=== PATIENT | female | born 1950 | race Caucasian/White ===

== ENCOUNTER 2019-12-04 08:40 | Emergency (ER) | payer OTHER ==
--- NOTE | 2019-12-04 09:39 | EDPHYS ---
Physician Documentation [facility] Name: Mary Asher Age: 69 yrs Sex: Female : 1950 Arrival Date: 12/04/2019 Time: 08:44 Bed 20 Private MD: Gene Whitaker ED Physician Nishant Evans HPI: 12/03 09:36 This 69 yrs old Female presents to ER via Ambulatory with complaints of Bee pm1 Sting. 09:36 The patient presents with swelling, wound. pm1 09:36 The complaints affect the right first toe. Context: The problem was sustained outdoors, pm1 resulted from yellow jacket sting, the patient can fully bear weight, the patient is able to ambulate. 09:36 Onset: The symptoms/episode began/occurred 2 day(s) ago. Modifying factors: The pm1 symptoms are alleviated by nothing, the symptoms are aggravated by nothing. Associated signs and symptoms: Pertinent negatives: fever. Severity of symptoms: in the emergency department the symptoms are actually worse. The patient has not experienced similar symptoms in the past. Patient believes that she might have scratched her foot at night because it is itchy and caused the wound on the top of her right great toe. She was stung on the medial aspect of her right great toe. Historical: - Allergies: 08:50 NSAIDS; ss 08:50 Demerol; ss 08:50 Percodan; ss - PMHx: 08:50 Hypertension; Hypothyroidism; Diabetes - NIDDM; ss - Immunization history:: Adult Immunizations unknown. - Social history:: Smoking status: Patient denies any tobacco usage or history of. ROS: 09:36 MS/extremity: Positive for rash, swelling, of the right first toe, Negative for pm1 decreased range of motion, deformity. 09:36 Constitutional: Negative for fever, chills, and weight loss, Cardiovascular: Negative for chest pain, palpitations, and edema, Respiratory: Negative for shortness of breath, cough, wheezing, and pleuritic chest pain, Abdomen/GI: Negative for abdominal pain, nausea, vomiting, diarrhea, and constipation, Back: Negative for injury and pain. 09:36 Neuro: Negative for headache, weakness, numbness, tingling, and seizure. 09:36 Skin: Positive for ulceration, of the right first toe. Exam: 09:36 Constitutional: This is a well developed, well nourished patient who is awake, alert, pm1 and in no acute distress. Head/Face: Normocephalic, atraumatic. Chest/axilla: Normal chest wall appearance and motion. Nontender with no deformity. No lesions are appreciated. Cardiovascular: Regular rate and rhythm with a normal S1 and S2. No gallops, murmurs, or rubs. Normal PMI, no JVD. No pulse deficits. Respiratory: Lungs have equal breath sounds bilaterally, clear to auscultation and percussion. No rales, rhonchi or wheezes noted. No increased work of breathing, no retractions or nasal flaring. Back: No spinal tenderness. No costovertebral tenderness. Full range of motion. 09:36 Skin: Appearance: normal except for affected area, abscess, not appreciated, cellulitis, is not appreciated, lesion(s), located on the right first toe, abrasion to dorsal aspect of right great toe. Mild swelling to right great toe. 09:36 Neuro: Exam negative for acute changes, Orientation: is normal, Mentation: is normal, Motor: is normal, moves all fours, Sensation: is normal, no obvious gross deficits. Vital Signs: 08:48 BP 161 / 72; Pulse 62; Resp 16; Temp 97.0(TE); Pulse Ox 97% on R/A; Weight 79.83 kg; ss Height 5 ft. 4 in. (162.56 cm); Pain 3/10; 09:25 BP 155 / 69; Pulse 87; Resp 18; Temp 98.2; Pulse Ox 95% on R/A; kj1 08:48 Body Mass Index 30.21 (79.83 kg, 162.56 cm) ss MDM: 09:30 Patient medically screened. pm1 09:36 Data reviewed: vital signs. Data interpreted: Pulse oximetry: on room air is 95 %. pm1 Interpretation: normal. 09:36 Counseling: I had a detailed discussion with the patient and/or guardian regarding: the pm1 historical points, exam findings, and any diagnostic results supporting the discharge/admit diagnosis, the need for outpatient follow up, to return to the emergency department if symptoms worsen or persist or if there are any questions or concerns that arise at home. 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 Exp: 08/17/2021. Lot #: [id number]. } Route: IM; Site: right gluteus; 09:52 Follow up: Response: Medication administered at discharge. Disposition: 19:29 Co-signature as Attending Physician, Nishant Evans MD. [email or web address] Disposition: 12/04/19 09:38 Discharged to Home. Impression: Insect bite (nonvenomous), right foot. - Condition is Stable. - Discharge Instructions: Insect Bite. - Prescriptions for Bactroban 2 % Topical Ointment - Apply to affected area 1 application by TOPICAL route every 12 hours; 30 gram. Bactrim DS 800- 160 mg Oral Tablet - take 1 tablet by ORAL route every 12 hours for 10 days; 20 tablet. - Medication Reconciliation Form, Thank You Letter, Antibiotic Education, Prescription Opioid Use form. - Follow up: Emergency Department; When: As needed; Reason: Worsening of condition. Follow up: Private Physician; When: 2 - 3 days; Reason: Recheck today's complaints, Continuance of care, Re-evaluation by your physician. - Problem is new. - Symptoms have improved. Signatures: Linda Giron RN RN Julio Cesar Harris NP [employer] pm1 Asael Irizarry RN RN bp Holmes, Maurice, MD MD [facility] Corrections: (The following items were deleted from the chart) 09:54 09:38 12/04/2019 09:38 Discharged to Home. Impression: Insect bite (nonvenomous), right bp foot. Condition is Stable. Forms are Medication Reconciliation Form, Thank You Letter, Antibiotic Education, Prescription Opioid Use. Follow up: Emergency Department; When: As needed; Reason: Worsening of condition. Follow up: Private Physician; When: 2 - 3 days; Reason: Recheck today's complaints, Continuance of care, Re-evaluation by your physician. Problem is new. Symptoms have improved. pm1
--- NOTE | 2019-12-04 09:39 | ER ---
Nurse's Notes [facility] Name: Mary Asher Age: 69 yrs Sex: Female : 1950 Arrival Date: 12/04/2019 Time: 08:44 Bed 20 Private MD: Gene Whitaker Diagnosis: Insect bite (nonvenomous), right foot Presentation: 12/03 08:48 Chief complaint: Patient states: redness, swelling and now a small wound to R foot ss after a yellow jacket sting two days ago. Coronavirus screen: Proceed with normal triage. Patient denies a cough. Patient denies shortness of breath or difficulty breathing. Patient denies measured and/or subjective temperature greater than 100.4F prior to today's visit. Patient denies travel on a cruise ship or to a country the [facility] currently lists as an affected area. Patient denies contact with known and/or suspected case of COVID-19. Ebola Screen: Patient denies exposure to infectious person. Patient denies travel to an Ebola-affected area in the 21 days before illness onset. Onset: The symptoms/episode began/occurred 2 day(s) ago. Anaphylaxis evaluation, no signs or symptoms of anaphylaxis were noted. Initial Sepsis Screen: Does the patient meet any 2 criteria? No. Patient's initial sepsis screen is negative. Does the patient have a suspected source of infection? Yes: Skin breakdown/wound. Risk Assessment: Do you want to hurt yourself or someone else? Patient reports no desire to harm self or others. Onset of symptoms was December 02, 2019. 08:48 Method Of Arrival: Ambulatory ss 08:48 Acuity: MATTHIAS 3 ss Historical: - Allergies: 08:50 NSAIDS; ss 08:50 Demerol; ss 08:50 Percodan; ss - PMHx: 08:50 Hypertension; Hypothyroidism; Diabetes - NIDDM; ss - Immunization history:: Adult Immunizations unknown. - Social history:: Smoking status: Patient denies any tobacco usage or history of. Screenin:00 Abuse screen: Denies threats or abuse. Denies injuries from another. Nutritional ss screening: No deficits noted. Tuberculosis screening: Never had TB. Fall Risk None identified. Assessment: 09:00 General: Appears in no apparent distress. comfortable, Behavior is calm, cooperative. ss Pain: Complains of pain in right foot Pain currently is 3 out of 10 on a pain scale. Neuro: Level of Consciousness is awake, alert, obeys commands, Oriented to person, place, time, situation. Cardiovascular: Capillary refill < 3 seconds is brisk in bilateral fingers. Respiratory: Airway is patent Respiratory effort is even, unlabored, Respiratory pattern is regular, symmetrical. GI: Patient currently denies diarrhea, nausea, vomiting. : No signs and/or symptoms were reported regarding the genitourinary system. EENT: Nares are clear. Derm: Skin is intact, is healthy with good turgor, Skin is dry, Skin is pink, warm \T\ dry. normal. Derm: Wound noted Other: redness and oozing that began 2 days ago after yellow jacket sting. oozing is noted to be serous fluid. Musculoskeletal: Circulation, motion, and sensation intact. Range of motion: intact in all extremities, Swelling absent. 09:53 Reassessment: PT D/C HOME AMBULATORY, DX WITH INSECT BITE. Respiratory: Airway is bp patent Breath sounds are clear bilaterally. Vital Signs: 08:48 BP 161 / 72; Pulse 62; Resp 16; Temp 97.0(TE); Pulse Ox 97% on R/A; Weight 79.83 kg; Height 5 ft. 4 in. (162.56 cm); Pain 3/10; 09:25 BP 155 / 69; Pulse 87; Resp 18; Temp 98.2; Pulse Ox 95% on R/A; kj1 08:48 Body Mass Index 30.21 (79.83 kg, 162.56 cm) ED Course: 08:44 Patient arrived in ED. mr 08:45 Gene Whitaker DO is Private Physician. mr 08:50 Triage completed. ss 08:50 Arm band placed on right wrist. ss 09:00 Patient has correct armband on for positive identification. Bed in low position. Call light in reach. 09:22 Asael Irizarry, SULTANA is Primary Nurse. bp 09:23 Julio Cesar Harris NP is PHCP. pm1 09:23 Nishant Evans MD is Attending Physician. pm1 09:53 No provider procedures requiring assistance completed. Patient did not have IV access bp during this emergency room visit. 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 Exp: bp 08/17/2021. Lot #: [id number]. } Route: IM; Site: right gluteus; 09:52 Follow up: Response: Medication administered at discharge. bp Outcome: 09:38 Discharge ordered by . pm1 09:53 Discharged to home ambulatory. bp 09:53 Condition: stable 09:53 Discharge instructions given to patient, Instructed on discharge instructions, follow up and referral plans. medication usage, wound care, Demonstrated understanding of instructions, follow-up care, medications, wound care, Prescriptions given X 2. 09:54 Patient left the ED. bp Signatures: Morena Keith Shelby, RN RN ss Julio Cesar Harris, [employer] pm1 Asael Irizarry RN RN Fartun Ann kj1
[2019-12-04] MEDS ORDERED: TETANUS & DIPHTHERIA TOX,ADULT 0.5 ML VIAL ONE (09:55)
[2019-12-04 10:02] VITALS: BP 155/69; TEMP 98.2; O2SAT 95
--- OUTSIDE RECORDS SUMMARY | 2019-12-04 10:03 | XMS REPORT | Continuity of Care Document ---
:1950 Author Organization [facility] t Address [address] [place] [address] [address] [place] [address] Care Team Providers Name Role Phone Unavailable Unavailable Unavailable Problems Condition Condition Condition Status Onset Resolution Last Treating Co mments Source Name Details Category Date Date Treatment Clinician Date Diabetes Diabetes Problem Active 2020-0 [facility] mellitus Mellitus 5-02 Family 00:00: Practic 00 e Hypothyroi Hypothyroi Problem Active 2020-0 [facility] dism dism 4-23 Family 00:00: Practic 00 e Diabetic Diabetic Problem Active 2020-0 [facility] polyneurop Polyneurop 4-23 Fa dhaval ath ath 00:00: Practic 00 e Insomnia Insomnia Problem Active 2020-0 [facility] ge 4-23 Family 00:00: Practic 00 e Blepharosp Blepharosp Problem Active 2020-0 [facility] asm asm 4-23 Family 00:00: Practic 00 e Essential Essential Problem Active 2020-0 [facility] trista hypertensi Hypertensi 4-23 Fa dhaval on on 00:00: Practic 00 e Gastroesop Gastroesop Problem Active 2020-0 [facility] hageal hageal 4-23 Family reflux Reflux 00:00: Practic disease Disease 00 e Allergies, Adverse Reactions, Alerts Allergy Allergy Status Severity Reaction(s) Onset Inactive Treating Comm ents Source Name Type Date Date Clinician Aspirin Allergy Active [facility] Practic e e Demerol Allergy Active [facility] Practic e e PERCODAN Allergy Active [facility] sub[facility]anc Practic e e Medications Ordered Filled Start Stop Current Ordering Indication Dosage Frequency Signature Comments Components Source Medication Medication Date Date Medication? Clinician (SIG) Name Name Viviana Michelle No 1 Q1D Viviana [facility] Thyroid 90 Thyroid 90 Thyroid 90 Family mg tablet mg tablet mg tablet Practic Take 1 Take 1 Take 1 e tablet tablet tablet every day every day every day by oral by oral by oral route. route. route. bisoprolol bisoprolol No 1 Q1D bisoprolol [facility] 2.5 2.5 2.5 Family mg-hydrochl mg-hydrochl mg-hydroch Practic orothiazide orothiazide lorothiazi e 6.25 mg 6.25 mg de 6.25 mg tablet Take tablet Take tablet 1 tablet 1 tablet Take 1 every day every day tablet by oral by oral every day route. route. by oral route. lansoprazol lansoprazol No 1capsul Q1D lansoprazo [place] e 30 mg e 30 mg e(s) le 30 mg Famil y capsule,del capsule,del capsule,de Practic ayed ayed layed e release release release Take 1 Take 1 Take 1 capsule capsule capsule every day every day every day by oral by oral by oral route. route. route. metformin metformin No 1 BID metformin [facility] 500 mg 500 mg 500 mg Family tablet Take tablet Take tablet Practic 1 tablet 1 tablet Take 1 e twice a day twice a day tablet by oral by oral twice a route. route. day by oral route. zolpidem 10 zolpidem 10 No 1 Q1D zolpidem [place] mg tablet mg tablet 10 mg Fami ly Take 1 Take 1 tablet Practic tablet tablet Take 1 e every day every day tablet by oral by oral every day route. route. by oral route. Vital Signs Vital Name Observation Time Observation Value Comments Source Height 2019-10-30 00:00:00 65 [in_i] [facility] BMI (Body Mass 2019-10-30 00:00:00 29.3 kg/m2 [facility] Family Index) Practice Body Weight 2019-10-30 00:00:00 176 [lb_av] [facility] Procedures This patient has no known procedures. Encounters Start End Encounter Admission Attending Care Care Encounter Source Date/Time Date/Time Type Type Clinicians Facility Department ID 2019-10-30 2019-10-30 Yanira [facility] [place] - [id number] [facility] 00:00:00 00:00:00 [facility] kristi nj REGIONAL TRANSFER LIAISON: Medical - Practi c [email or web address] [facility], [place] [address], [place] [address] , Ph. Results This patient has no known results.
--- OUTSIDE RECORDS SUMMARY | 2019-12-04 10:03 | XMS REPORT | Encounter Summary ---
:1950 Author Care Team Providers Name Role Phone Dr. Apolonia Barksdale Primary Care Provider Unavailable Gene Whitaker DO Primary Care Provider [phone] Reason for Visit Gastroesophageal reflux disease; Hypothy roidism; Diabetes mellitus; Essential hypertension; Telemedicine Visit Instructions 1. Gastroesophageal reflux disea se 2. Essential hypertension bisoprolol 2.5 mg-hydrochl orothiazide 6.25 mg tablet 3. Diabetes mellitus metformin 500 mg tablet 4. Hypothyroidism [place] Thyroid 90 mg table t Discussion Note Completed a telephone visit with vijay mendiola. Patient report he has enough meds currently and does not need any refills. Patient encouraged to wash hands frequently for 20 seconds, practice social distanci ng by stay home and maintaining physical space in public. Patient encouraged to s [facility] if he starts having continues cough, fever and sob. Patient verbalized understanding. Patient educational handouts: No information available. Plan of Care Reminders Provider Appointments None recorded. Lab None recorded. Referral None recorded. Procedures None recorded. Surgeries None recorded. Imaging None recorded. Medications Name Start Date [place] Thyroid 90 mg tablet Take 1 tablet every day by oral route. bisoprolol 2.5 mg-hydrochlorothiazide 6.25 mg tablet Take 1 tablet every day by oral route. lansoprazole 30 mg capsule,delayed release Take 1 capsule every day by oral route. metformin 500 mg tablet Take 1 tablet twice a day by oral route. zolpidem 10 mg tablet Take 1 tablet every day by oral route. Medications Administered None recorded. Vitals Height Weight BMI 5 ft 5 in 176 lbs 29.3 kg/m2 Results Lab Results None recorded. Allergies Code Code System Name Reaction Severity Status Onset 1191 RxNorm Aspirin Active 678307 RxNorm Demerol Active Percodan Active Problems Name Status Onset Date Source Hypothyroidism Active 10/25/2019 Diabetic Polyneuropathy Active 10/25/2019 Insomnia Active 10/25/2019 Blepharospasm Active 10/25/2019 Essential Hypertension Active 10/25/2019 Gastroesophageal Reflux Disease Active 10/25/2019 Diabetes Mellitus Active 11/03/2019 Procedures None recorded. Vaccine List None recorded. Social History None recorded. Past Encounters 10/30/2019 Gastroesophageal Reflux Disease; Essenti al Hypertension; Diabetes Mellitus; Hypothyroidism Yanira Levin CHARTERED FINANCIAL ANALYST: [address], [address], [place] [address], Ph. History of Present Illness Note: I confirmed that I received verbal consent from the patient for a telemedicine visit. Review of Systems Comprehensive General Adult ROS Reported By: Patient Constitutional: Constitutional: no fever, no night sweats, no significant weight gain, no significant weight loss, no exercise intolerance Eyes: Eyes: no dry eyes, no vision change, no irritation ENMT: Ears: no difficulty hearing, no ear pain. Nose: no frequent nosebleeds, no nose problems , no sinus problems. Mouth/Throat: no sore throat, no bleeding gums, no snoring, no dry mouth, no mouth ulcers, no oral abnorm alities, no teeth problems Cardiovascular: Cardiovascular: no chest maryellen n, no arm pain on exertion, no shortness of breath when wal heather, no shortness of breath when lying down, no palpitations, no known heart murmur, no lightheadedness Respiratory: Respiratory: no cough, no wh eezing, no shortness of breath, no coughing up blood, no sleep apnea Gastrointestinal: Gastrointestinal: no abdomin al pain, no nausea, no vomiting, no constipation, normal appe tite, no diarrhea, not vomiting blood, no dyspepsia, no GERD Genitourinary: Genitourinary: no incontinen ce, no difficulty urinating, no hematuria, no increased freq uency Musculoskeletal: Musculoskeletal: no muscle a ches, no muscle weakness, no arthralgias/joint pain, no b ack pain, no swelling in the extremities Integumentary: Skin: no abnormal mole, no j aundice, no rashes, no laceration Neurologic: Neurologic: no loss of consc iousness, no weakness, no numbness, no seizures, no di zziness, no migraines, no headaches, no tremor Psychiatric: Psych: no depression, no sle ep disturbances, feeling safe in a relationship, no alcohol abu se, no anxiety, no hallucinations, no suicidal thoughts Endocrine: Endocrine: no fatigue Hematologic/Lymphatic: Hematologic/Lymphatic no swo llen glands, no bruising, no excessive bleeding Allergic/Immunologic: Allergy/Immunologic: no runn y nose, no sinus pressure, no itching, no hives, no freque nt sneezing Physical Exam Telemedicine/Virtual Visit Reported By: Patient Constitutional: Level of Distress: NAD
== END 2019-12-04 09:54 | disposition home or self-care (01) ==
LOC: ER 08:40
DX: S90.861A Insect bite (nonvenomous), right foot, initial encounter (principal); Z88.6 Allergy status to analgesic agent
CPT/HCPCS: 90471; 90714; 99283

== ENCOUNTER 2023-12-19 13:31 | Emergency (ER) | payer OTHER ==
[2023-12-19 14:42] LABS: Absolute Eosinophils 0.2 K/uL (0-0.5); Absolute Lymphocytes (CBC) 1.8 K/uL (0.7-4.9); Absolute Monocytes 0.4 K/uL (0.1-1.3); Absolute Neutrophil 4.8 K/uL (1.8-8.0); Basophils % 0.5 % (0-1.3); Eosinophils % 2.4 % (0-4.4); Lymphocytes % 25.4 % (15.3-44.8); MCH 31.9 pg (27.0-35.0); MCHC 33.4 g/dL (32.0-36.0); MCV 95.4 fL (80-100); MPV 7.9 fL (7.6-11.3); Monocytes % 5.5 % (3.3-12.3); Neutrophils % 66.2 % (41.7-73.7); Platelets 309 thou/uL (152-406); RBC Red Blood Cell Count 4.41 M/uL (3.86-4.86); Red Cell Distribution Width 12.9 % (12.1-15.2)
[2023-12-19 14:49] LABS: ALT/SGPT 25 U/L (13-56); Albumin 3.8 g/dL (3.4-5.0); Alkaline Phosphatase 64 U/L (45-117); Anion Gap 9.7 mEq/L (5.0-15.0); BUN Blood Urea Nitrogen 10 mg/dL (7-18); Bicarbonate 28 mEq/L (21-32); Bilirubin Total 0.3 mg/dL (0.2-1.0); Globulin 3.8 g/dL (2.3-3.5); Glomerular Filtration Rate 90 ml/min (=/>90); Glucose Level 129 mg/dL (74-106); Lipase 104 U/L (13-75); Potassium 3.7 mEq/L (3.5-5.1); Protein, Total 7.6 g/dL (6.4-8.2); Sodium Level 140 mEq/L (136-145)
[2023-12-19 14:53] LABS: AST/SGOT < 10 U/L (15-37)
[2023-12-19] MEDS ORDERED: MORPHINE 4 MG/ML SYR ONE ×2 (14:54→16:24)
[2023-12-19 15:09] LABS: Specific Gravity 1.021 (1.005-1.030); Sqamous Epithelial <5 /HPF (None Seen); Urine Bacteria None Seen /HPF (<20); Urine Bilirubin NEGATIVE (Negative); Urine Blood 3+ (OVER) (Negative); Urine Clarity Extremely Turbid (Clear); Urine Color Light-Yellow (Yellow); Urine Culture Reflex Order NOT NEEDED; Urine Glucose NEGATIVE (Negative); Urine Ketones NEGATIVE (Negative); Urine Microscopic Reflex YN ORDER UMIC; Urine Mucus Slight /HPF (None Seen); Urine Nitrite NEGATIVE (Negative); Urine Protein TRACE (Negative); Urine RBC >50 /HPF (None Seen); Urine Urobilinogen Normal (Normal); Urine Yeast (Budding) Occasional /HPF (None Seen); Urine pH 5.5 (5.0-7.0)
--- NOTE | 2023-12-19 16:55 | RAD REPORT ---
EXAM DESCRIPTION: CT - Stone Protocol - 12/19/2023 2:30 pm CLINICAL HISTORY: left flank pain COMPARISON: No comparisons TECHNIQUE: Thin cut axial CT imaging of the abdomen and pelvis was performed without IV contrast. Mu ltiplanar reformats were generated and reviewed. All CT scans are performed using dose optimization technique as appropriate and may include automated exposure control or mA/KV adjustment according to patient size. FINDINGS: No suspicious findings in the lung bases. The liver, spleen, adrenal glands, and pancreas show no suspicious findings. Gallbladder was surgical ly removed. Symmetric renal contour, without suspicious parenchymal findings within limits of noncontrast techniq ue. Mild left hydronephrosis. 6 mm calculus at the left ureteric junction. No dilated bowel loops or bowel wall thickening. No free air, free fluid or inflammatory stranding. N o hernia, mass or bulky lymphadenopathy. Colonic diverticulosis. The urinary bladder is without signi ficant finding. No suspicious bony findings. IMPRESSION: Mild left hydroureteronephrosis. 6 mm left pelviureteric junction obstructing calculus. .
[2023-12-19] MEDS ORDERED: TAMSULOSIN 0.4 MG SR CAP ONE (17:01)
--- NOTE | 2023-12-19 17:50 | ER ---
Nurse's Notes [facility] Name: Mary Asher Age: 73 yrs Sex: Female : 1950 Arrival Date: 12/19/2023 Time: 13:31 Bed 11 Private MD: Diagnosis: Calculus of ureter-left Presentation: 12/18 13:47 Chief complaint: Patient states: left flank pain that began around 1200 today. Pt also aa5 reports nausea. Coronavirus screen: At this time, the client does not indicate any symptoms associated with coronavirus-19. Ebola Screen: Patient denies travel to an Ebola-affected area in the 21 days before illness onset. Initial Sepsis Screen: Does the patient meet any 2 criteria? No. Patient's initial sepsis screen is negative. Does the patient have a suspected source of infection? No. Patient's initial sepsis screen is negative. Risk Assessment: Do you want to hurt yourself or someone else? Patient reports no desire to harm self or others. Onset of symptoms was December 19, 2023. 13:47 Method Of Arrival: Ambulatory aa5 13:47 Acuity: MATTHIAS 3 aa5 Historical: - Allergies: 13:47 Demerol; aa5 13:47 NSAIDS; aa5 13:47 Percodan; aa5 13:47 Aspirin; aa5 - PMHx: 13:47 Diabetes - NIDDM; Hypertension; Hypothyroidism; aa5 - Immunization history:: Adult Immunizations unknown. - Infectious Disease History:: Denies. - Social history:: Smoking status: Patient denies any tobacco usage or history of. Screenin:11 [facility] ED Fall Risk Assessment (Adult) History of falling in the last 3 months, as6 including since admission No falls in past 3 months (0 pts) Confusion or Disorientation No (0 pts) Intoxicated or Sedated No (0 pts) Impaired Gait No (0 pts) Mobility Assist Device Used No (0 pt) Altered Elimination No (0 pt). Abuse screen: Denies threats or abuse. Denies injuries from another. Nutritional screening: No deficits noted. Tuberculosis screening: No symptoms or risk factors identified. Assessment: 15:10 General: Appears in no apparent distress. Behavior is calm, cooperative. Pain: as6 Complains of pain in left flank. : Reports pain in left flank(s), Denies burning with urination, inability to void, urinary frequency, urgency. 16:28 Reassessment: Patient appears in no apparent distress at this time. Patient states as6 symptoms have not improved. 17:26 General: slight improvement in pain . as6 Vital Signs: 13:47 BP 155 / 82; Pulse 82; Resp 20 S; Temp 97.6(O); Pulse Ox 100% on R/A; Weight 73.03 kg aa5 (R); Height 5 ft. 3 in. (R); 16:28 BP 112 / 86; Pulse 80; Resp 16; Pulse Ox 97% ; as6 17:25 BP 153 / 87; Pulse 78; Resp 16; Pulse Ox 100% ; as6 17:58 BP 132 / 72; Pulse 65; Resp 16; Pulse Ox 99% ; as6 13:47 Body Mass Index 28.52 (73.03 kg, 160.02 cm) aa5 ED Course: 13:35 Patient arrived in ED. im 13:38 Bunny Evans PA is PHCP. cp 13:38 Jorge Carpenter MD is Attending Physician. cp 13:47 Triage completed. aa5 13:47 Arm band placed on. aa5 14:23 CBC with Diff Sent. bc6 14:23 CMP Sent. bc6 14:23 Lipase Sent. bc6 14:23 Urinalysis w/ reflexes Sent. bc6 14:23 Initial lab(s) drawn, by me, sent to lab. Inserted saline lock: 22 gauge in right bc6 wrist, using aseptic technique. Blood collected. 14:31 CT Stone Protocol In Process Unspecified. EDMS 14:44 Patient placed in an exam room, on a stretcher. ll1 14:52 Gene Rivera, RN is Primary Nurse. as6 15:11 Bed in low position. Call light in reach. Side rails up X 1. as6 17:49 Logan Wright MD is Referral Physician. cp 17:58 Provided Education on: rx teaching . as6 17:58 No provider procedures requiring assistance completed. IV discontinued, intact, as6 bleeding controlled, No redness/swelling at site. Pressure dressing applied. Administered Medications: 15:02 Drug: morphine IVP or IV 4 mg IVP once over 4 mins Route: IVP; Infused Over: 4 mins; as6 Site: right forearm; 17:00 Follow up: Response: No adverse reaction as6 16:28 Drug: morphine IVP or IV 4 mg IVP once over 4 mins Route: IVP; Infused Over: 4 mins; as6 Site: right forearm; 17:00 Follow up: Response: No adverse reaction as6 17:25 Drug: Flomax PO 0.4 mg PO once Route: PO; as6 17:58 Follow up: Response: No adverse reaction as6 Medication: 15:11 VIS not applicable for this client. as6 Outcome: 17:49 Discharge ordered by . lebron 17:58 Discharged to home ambulatory, with significant other, as6 17:58 Condition: stable 17:58 Discharge instructions given to patient, Instructed on discharge instructions, follow up and referral plans. medication usage, Demonstrated understanding of instructions, follow-up care, medications, Prescriptions given X 3, 17:59 Patient left the ED. as6 Signatures: Dispatcher [employer] EDMS Bharti Soto RN RN aa5 Bunyn Evans PA PA cp Lewis, Lynsay, RN RN ll1 Gene Rivera RN RN as6 Vashti Ramirez 6 Meli Mota
--- NOTE | 2023-12-19 17:50 | EDPHYS ---
Physician Documentation [facility] Name: Mary Asher Age: 73 yrs Sex: Female : 1950 Arrival Date: 12/19/2023 Time: 13:31 Bed 11 Private MD: ED Physician Jorge Carpenter HPI: 12/18 14:00 This 73 yrs old Female presents to ER via Ambulatory with complaints of Side pain. cp 14:00 The patient complains of pain in the left flank. cp 14:00 The pain radiates to the abdomen. Onset: The symptoms/episode began/occurred today, cp about 1200. Associated signs and symptoms: Pertinent positives: nausea, Pertinent negatives: diarrhea, fever, headache, hematuria, vomiting. Severity of pain: in the emergency department the pain is unchanged despite home interventions. Historical: - Allergies: 13:47 Demerol; aa5 13:47 NSAIDS; aa5 13:47 Percodan; aa5 13:47 Aspirin; aa5 - PMHx: 13:47 Diabetes - NIDDM; Hypertension; Hypothyroidism; aa5 - Immunization history:: Adult Immunizations unknown. - Infectious Disease History:: Denies. - Social history:: Smoking status: Patient denies any tobacco usage or history of. ROS: 14:05 Constitutional: Negative for body aches, chills, fever, poor PO intake, cp 14:05 Eyes: Negative for injury, pain, redness, and discharge, cp 14:05 ENT: Negative for drainage from ear(s), ear pain, sore throat, difficulty swallowing, difficulty handling secretions, 14:05 Cardiovascular: Negative for chest pain, palpitations, 14:05 Respiratory: Negative for cough, shortness of breath, wheezing, 14:05 Abdomen/GI: Positive for nausea, Negative for vomiting, diarrhea, constipation, 14:05 Back: Positive for flank pain, on the left, 14:05 : Negative for burning with urination, 14:05 Neuro: Negative for altered mental status, headache, weakness, 14:05 All other systems are negative, Exam: 14:10 Constitutional: The patient appears in no acute distress, alert, awake, non-toxic, well cp developed, well nourished, uncomfortable, 14:10 Head/Face: Normocephalic, atraumatic. cp 14:10 Eyes: Periorbital structures: appear normal, Conjunctiva: normal, no exudate, no injection, Sclera: no appreciated abnormality, Lids and lashes: appear normal, bilaterally, 14:10 ENT: External ear(s): are unremarkable, Nose: is normal, Mouth: Lips: moist, Oral mucosa: pink and intact, moist, Posterior pharynx: Airway: no evidence of obstruction, patent, 14:10 Chest/axilla: Inspection: normal, 14:10 Cardiovascular: Rate: normal, Rhythm: regular, 14:10 Respiratory: the patient does not display signs of respiratory distress, Respirations: normal, no use of accessory muscles, no retractions, labored breathing, is not present, Breath sounds: are clear throughout, no decreased breath sounds, no stridor, no wheezing, 14:10 Abdomen/GI: Inspection: abdomen appears normal, Bowel sounds: active, all quadrants, Palpation: soft, in all quadrants, moderate abdominal tenderness, in the posterior aspect of left lateral abdomen and anterior aspect of left lateral abdomen, rebound tenderness, is not appreciated, involuntary guarding, is not appreciated, 14:10 Back: pain, that is moderate, of the left mid back, ROM is normal, 14:10 Neuro: Orientation: to person, place \T\ time. Mentation: able to follow commands, Motor: moves all fours, strength is normal, Sensation: is normal, Vital Signs: 13:47 BP 155 / 82; Pulse 82; Resp 20 S; Temp 97.6(O); Pulse Ox 100% on R/A; Weight 73.03 kg aa5 (R); Height 5 ft. 3 in. (R); 16:28 BP 112 / 86; Pulse 80; Resp 16; Pulse Ox 97% ; as6 17:25 BP 153 / 87; Pulse 78; Resp 16; Pulse Ox 100% ; as6 17:58 BP 132 / 72; Pulse 65; Resp 16; Pulse Ox 99% ; as6 13:47 Body Mass Index 28.52 (73.03 kg, 160.02 cm) aa5 MDM: 13:45 Patient medically screened. 17:48 Data reviewed: vital signs, nurses notes, lab test result(s), radiologic studies, CT cp scan, and as a result, I will discharge patient. 17:48 I considered the following discharge prescriptions or medication management in the emergency department Medications were administered in the Emergency Department. See MAR. Care significantly affected by the following chronic conditions: Diabetes, Hypertension. Counseling: I had a detailed discussion with the patient and/or guardian regarding the historical points, exam findings, and any diagnostic results supporting the discharge/admit diagnosis, lab results, radiology results, the need for outpatient follow up, a urologist, to return to the emergency department if symptoms worsen or persist or if there are any questions or concerns that arise at home. Response to treatment: the patient's symptoms have markedly improved after treatment, and as a result, I will discharge patient. 12/18 13:58 Order name: CBC with Diff; Complete Time: 15:12 cp 12/18 13:58 Order name: CMP; Complete Time: 15:12 12/18 15:12 Interpretation: Normal except: GLUC 129; AST < 10; GLOB 3.8; A/G 1.0. cp 12/18 13:58 Order name: Lipase; Complete Time: 15:12 12/18 13:58 Order name: Urinalysis w/ reflexes; Complete Time: 15:12 12/18 15:14 Interpretation: Normal except: [facility] Extremely Turbid; UBLD 3+ (OVER); UPROT TRACE; cp UESTR 75; URBC >50; BYST Occasional. 12/18 13:58 Order name: CT Stone Protocol; Complete Time: 16:56 cp 12/18 13:58 Order name: IV Saline Lock; Complete Time: 14:23 cp 12/18 13:58 Order name: Labs collected and sent; Complete Time: 14:23 cp Administered Medications: 15:02 Drug: morphine IVP or IV 4 mg IVP once over 4 mins Route: IVP; Infused Over: 4 mins; as6 Site: right forearm; 17:00 Follow up: Response: No adverse reaction as6 16:28 Drug: morphine IVP or IV 4 mg IVP once over 4 mins Route: IVP; Infused Over: 4 mins; as6 Site: right forearm; 17:00 Follow up: Response: No adverse reaction as6 17:25 Drug: Flomax PO 0.4 mg PO once Route: PO; as6 17:58 Follow up: Response: No adverse reaction as6 Disposition: 12/19 16:26 Co-signature as Attending Physician, Jorge Carpenter MD I reviewed the patient's care rn provided by the Advanced Practice Provider and agree with the diagnosis and treatment plan. Disposition Summary: 12/19/23 17:49 Discharge Ordered Notes: Location: Home cp Problem: new cp Symptoms: have improved cp Condition: Stable cp Diagnosis - Calculus of ureter - left cp Followup: cp - With: Logan Wright MD - When: 2 - 3 days - Reason: Recheck today's complaints Discharge Instructions: - Discharge Summary Sheet cp - Kidney Stones cp - Renal Colic cp Forms: - Medication Reconciliation Form cp - Antibiotic Education cp - Prescription Opioid Use cp - Patient Portal Instructions cp - Leadership Thank You Letter cp Prescriptions: - Flomax 0.4 mg Oral capsule - take 1 capsule ORAL route every 24 hours; 7 capsule; Refills: 0, Product cp Selection Permitted - acetaminophen-codeine 300-30 mg Oral tablet - take 2 tablet ORAL route every 8-12 hours; 16 tablet; Refills: 0, Product cp Selection Permitted - Zofran 4 mg Oral Tablet - take 1 tablet ORAL route every 12 hours As needed; 20 tablet; Refills: 0, cp Product Selection Permitted Signatures: Dispatcher [employer] Jorge Anguiano MD MD rn Calderon, Audri RN RN aa5 Bunny Evans PA PA cp Gene Rivera, RN RN as6
[2023-12-19 18:17] VITALS: BP 132/72; TEMP 97.6; O2SAT 99
== END 2023-12-19 17:59 | disposition home or self-care (01) ==
LOC: ER 13:31
DX: N20.1 Calculus of ureter (principal)
CPT/HCPCS: 36415; 74176; 76377; 80053; 81001; 83690; 85025; 96374; 99284

== ENCOUNTER 2023-12-23 10:27 | Emergency (ER) | payer OTHER ==
[2023-12-23 11:20] LABS: Specific Gravity 1.028 (1.005-1.030); Sqamous Epithelial <5 /HPF (None Seen); Urine Bacteria <20 /HPF (<20); Urine Bilirubin NEGATIVE (Negative); Urine Blood 3+ (OVER) (Negative); Urine Clarity Extremely Turbid (Clear); Urine Color Yellow (Yellow); Urine Culture Reflex Order REFLEXED; Urine Glucose NEGATIVE (Negative); Urine Ketones TRACE (Negative); Urine Microscopic Reflex YN ORDER UMIC; Urine Nitrite NEGATIVE (Negative); Urine Protein 1+ (Negative); Urine RBC >50 /HPF (None Seen); Urine Urobilinogen 1+ (Normal)
[2023-12-23 11:31] LABS: Absolute Lymphocytes (CBC) 0.9 K/uL (0.7-4.9); Absolute Monocytes 0.6 K/uL (0.1-1.3); Absolute Neutrophil 6.9 K/uL (1.8-8.0); Basophils % 0.2 % (0-1.3); Eosinophils % 0.1 % (0-4.4); Hematocrit 39.5 % (36.0-45.0); Hemoglobin 13.3 g/dL (12.0-15.0); Lymphocytes % 10.9 % (15.3-44.8); MCHC 33.7 g/dL (32.0-36.0); MCV 94.9 fL (80-100); MPV 7.6 fL (7.6-11.3); Monocytes % 7.5 % (3.3-12.3); Neutrophils % 81.3 % (41.7-73.7); Platelets 317 thou/uL (152-406); RBC Red Blood Cell Count 4.16 M/uL (3.86-4.86); Red Cell Distribution Width 12.6 % (12.1-15.2)
--- NOTE | 2023-12-23 11:44 | RAD REPORT ---
EXAM DESCRIPTION: CT - Abdomen Pelvis Wo Contrast - 12/23/2023 11:00 am CLINICAL HISTORY: FLANK PAIN COMPARISON: Stone Protocol dated 12/19/2023 TECHNIQUE: Thin cut axial CT imaging of the abdomen and pelvis was performed without IV contrast. Mu ltiplanar reformats were generated and reviewed. All CT scans are performed using dose optimization technique as appropriate and may include automated exposure control or mA/KV adjustment according to patient size. FINDINGS: No suspicious findings in the lung bases. The liver, spleen, adrenal glands, and pancreas show no suspicious findings. Gallbladder was surgical ly removed. Symmetric renal contour, without suspicious parenchymal findings within limits of noncontrast techniq ue. Moderate left hydronephrosis. 6 mm calculus present just distal to the pelviureteric junction, st able in position, with mild proximal hydroureter. Left perinephric fat stranding. No dilated bowel loops or bowel wall thickening. Colonic diverticulosis. No free air, free fluid or i nflammatory stranding. No hernia, mass or bulky lymphadenopathy. The urinary bladder is decompressed limiting evaluation. No suspicious bony findings. IMPRESSION: Stable position of 6 mm left proximal ureteric calculus. More pronounced left hydronephr osis, now up to moderate, with left perinephric fat stranding, suggesting worsening degree of obstruc tion. The findings were communicated to Todd Agrawal on 12/23/2023 at 11:39 hours.
[2023-12-23 11:48] LABS: ALT/SGPT 21 U/L (13-56); Albumin 3.3 g/dL (3.4-5.0); Albumin/Globulin Ratio 0.7 (1.1-1.8); Alkaline Phosphatase 67 U/L (45-117); Anion Gap 8.7 mEq/L (5.0-15.0); BUN Blood Urea Nitrogen 12 mg/dL (7-18); Bicarbonate 33 mEq/L (21-32); Bilirubin Total 0.7 mg/dL (0.2-1.0); Globulin 4.6 g/dL (2.3-3.5); Glomerular Filtration Rate 56 ml/min (=/>90); Glucose Level 142 mg/dL (74-106); Lipase 37 U/L (13-75); Potassium 3.7 mEq/L (3.5-5.1); Protein, Total 7.9 g/dL (6.4-8.2); Sodium Level 134 mEq/L (136-145)
[2023-12-23 11:50] LABS: AST/SGOT < 10 U/L (15-37)
[2023-12-23] MEDS ORDERED: MORPHINE 4 MG/ML SYR ONE ×2 (12:39→16:16)
[2023-12-23] MEDS ORDERED: ONDANSETRON 4 MG/2 ML VIAL ONE (12:39)
--- NOTE | 2023-12-23 13:47 | EDPHYS ---
Physician Documentation [facility] Name: Mary Asher Age: 73 yrs Sex: Female : 1950 Arrival Date: 12/23/2023 Time: 10:27 Bed 20 Private MD: ED Physician Todd Agrawal HPI: 12/22 13:36 This 73 yrs old Female presents to ER via Ambulatory with complaints of Possible Kidney rt Stone. 13:36 Patient was diagnosed with a kidney stone about 1 week ago on the left side. Patient rt has been taking Flomax, Tylenol 3 for the past week, states that the left flank pain has been worsening. She has nausea and vomiting. She denies other acute complaints at this time, symptoms are moderate in severity, no other aggravating or alleviating factors.. Historical: - Allergies: 10:44 Aspirin; hb 10:44 Demerol; hb 10:44 NSAIDS; hb 10:44 Percodan; hb - PMHx: 10:44 Diabetes - NIDDM; Hypertension; Hypothyroidism; hb - Immunization history:: Adult Immunizations up to date. - Infectious Disease History:: Denies. - Social history:: Smoking status: Patient denies any tobacco usage or history of. - Family history:: not pertinent. ROS: 13:36 Constitutional: Negative for fever, chills, and weight loss, Cardiovascular: Negative rt for chest pain, palpitations, and edema, Respiratory: Negative for shortness of breath, cough, wheezing, and pleuritic chest pain, MS/Extremity: Negative for injury and deformity, Skin: Negative for injury, rash, and discoloration, 13:36 Abdomen/GI: Positive for nausea, vomiting, 13:36 Back: Positive for flank pain, Negative for injury or acute deformity, Exam: 13:36 Constitutional: This is a well developed, well nourished patient who is awake, alert, rt and in no acute distress. Head/Face: Normocephalic, atraumatic. Chest/axilla: Normal chest wall appearance and motion. Nontender with no deformity. No lesions are appreciated. Cardiovascular: Regular rate and rhythm with a normal S1 and S2. No gallops, murmurs, or rubs. Normal PMI, no JVD. No pulse deficits. Respiratory: Lungs have equal breath sounds bilaterally, clear to auscultation and percussion. No rales, rhonchi or wheezes noted. No increased work of breathing, no retractions or nasal flaring. Abdomen/GI: Soft, non-tender, with normal bowel sounds. No distension or tympany. No guarding or rebound. No evidence of tenderness throughout. Skin: Warm, dry with normal turgor. Normal color with no rashes, no lesions, and no evidence of cellulitis. MS/ Extremity: Pulses equal, no cyanosis. Neurovascular intact. Full, normal range of motion. Vital Signs: 10:44 BP 153 / 87; Pulse 77; Resp 16; Temp 97.1(TE); Pulse Ox 99% on R/A; Weight 73.03 kg; hb Height 5 ft. 3 in. ; Pain 6/10; 12:51 BP 134 / 73; Pulse 71; Resp 16; Pulse Ox 94% on R/A; nj1 13:45 BP 131 / 72; Pulse 72; Resp 16; Pulse Ox 96% on R/A; Pain 4/10; nj1 14:51 BP 131 / 75; Pulse 74; Resp 16; Pulse Ox 94% on R/A; nj1 16:08 BP 135 / 69; Pulse 73; Resp 16; Pulse Ox 97% ; nj1 10:44 Body Mass Index 28.52 (73.03 kg, 160.02 cm) hb 10:44 Pain Scale: Adult hb 13:45 Pain Scale: Adult nj1 MDM: 10:49 Patient medically screened. rt 13:46 Differential Diagnosis Kidney stone, pyelonephritis. Data reviewed: vital signs, nurses rt notes, lab test result(s), radiologic studies. Consideration of Admission/Observation Patient with continued intractable pain, stone is not moving, will transfer for urologic evaluation.. Management of patient was discussed with the following: [place]: Discussed with accepting neurologist at [facility]. I considered the following discharge prescriptions or medication management in the emergency department Medications were administered in the Emergency Department. See MAR. Independent interpretation of the following test(s) in the Emergency Department CT Scan: My interpretation is Ureteral stone seen on interpretation of CT scan images. Care significantly affected by the following chronic conditions: Diabetes, Hypertension. Counseling: I had a detailed discussion with the patient and/or guardian regarding the historical points, exam findings, and any diagnostic results supporting the discharge/admit diagnosis, lab results, radiology results, the need to transfer to another facility. Response to treatment: the patient's symptoms have mildly improved after treatment. 12/22 10:50 Order name: CBC with Diff; Complete Time: 11:48 rt 12/22 10:50 Order name: CMP; Complete Time: 13:05 rt 12/22 10:50 Order name: Lipase; Complete Time: 13:05 rt 12/22 10:50 Order name: Urinalysis w/ reflexes; Complete Time: 11:48 rt 12/22 11:23 Order name: Urine Culture EDNC 12/22 10:50 Order name: CT Abd/Pelvis - Without Contrast; Complete Time: 11:48 rt 12/22 10:50 Order name: IV Saline Lock; Complete Time: 11:25 rt 12/22 10:50 Order name: Labs collected and sent; Complete Time: 11:25 rt Administered Medications: 12:43 Drug: Ondansetron IVP 4 mg IVP once; over 2 minutes Route: IVP; Site: right antecubital;nj1 13:40 Follow up: Response: No adverse reaction nj1 12:45 Drug: morphine IVP or IV 2 mg IVP once over 4 mins Route: IVP; Infused Over: 4 mins; nj1 Site: right antecubital; 13:40 Follow up: Response: No adverse reaction; Pain is decreased nj1 16:19 Drug: morphine IVP or IV 2 mg IVP once over 4 mins Route: IVP; Infused Over: 4 mins; nj1 Site: right antecubital; Disposition Summary: 12/23/23 13:46 Transfer Ordered Notes: Transfer Location: [facility] rt Reason: Higher level of care rt Condition: Stable rt Problem: an ongoing problem rt Symptoms: are unchanged rt Accepting Physician: (12/23/23 16:19) nj1 Diagnosis - Calculus of ureter rt Forms: - Medication Reconciliation Form rt - SBAR form rt Signatures: Dispatcher [employer] EDMariely Cali RN RN hb [place], Ryan, MD MD rt Serene Ashraf RN RN nj1 Corrections: (The following items were deleted from the chart) 16:19 13:46 rt nj1
--- NOTE | 2023-12-23 13:47 | ER ---
Nurse's Notes [facility] Name: Mary Asher Age: 73 yrs Sex: Female : 1950 Arrival Date: 12/23/2023 Time: 10:27 Bed 20 Private MD: Diagnosis: Calculus of ureter Presentation: 12/22 10:43 Chief complaint: Nausea and left flank pain x 1 week. Coronavirus screen: At this time, hb the client does not indicate any symptoms associated with coronavirus-19. Ebola Screen: No symptoms or risks identified at this time. Initial Sepsis Screen: Does the patient meet any 2 criteria? No. Patient's initial sepsis screen is negative. Does the patient have a suspected source of infection? No. Patient's initial sepsis screen is negative. Risk Assessment: Do you want to hurt yourself or someone else? Patient reports no desire to harm self or others. Onset of symptoms was December 18, 2023. 10:43 Method Of Arrival: Ambulatory hb 10:43 Acuity: MATTHIAS 3 hb Triage Assessment: 10:49 General: Appears in no apparent distress. Behavior is calm, cooperative. Pain: Pain hb currently is 6 out of 10 on a pain scale. Neuro: Level of Consciousness is awake, alert, obeys commands, Oriented to person, place, time, situation. Cardiovascular: Patient's skin is warm and dry. Respiratory: Respiratory effort is even, unlabored, Respiratory pattern is regular, symmetrical. GI: Reports left flank pain and nausea. Historical: - Allergies: 10:44 Aspirin; hb 10:44 Demerol; hb 10:44 NSAIDS; hb 10:44 Percodan; hb - PMHx: 10:44 Diabetes - NIDDM; Hypertension; Hypothyroidism; hb - Immunization history:: Adult Immunizations up to date. - Infectious Disease History:: Denies. - Social history:: Smoking status: Patient denies any tobacco usage or history of. - Family history:: not pertinent. Screenin:50 [facility] ED Fall Risk Assessment (Adult) History of falling in the last 3 months, nj1 including since admission No falls in past 3 months (0 pts) Confusion or Disorientation No (0 pts) Intoxicated or Sedated No (0 pts) Impaired Gait No (0 pts) Mobility Assist Device Used No (0 pt) Altered Elimination No (0 pt) Score/Fall Risk Level 0 - 2 = Low Risk Oriented to surroundings, Maintained a safe environment, Hourly rounding (assess needs \\T\\ fall precautionary measures) done. Abuse screen: Denies threats or abuse. Denies injuries from another. Nutritional screening: No deficits noted. Tuberculosis screening: No symptoms or risk factors identified. Assessment: 12:45 General: Appears in no apparent distress. comfortable. nj1 12:45 Pain: Complains of pain in flank, left Pain currently is 5 out of 10 on a pain scale. nj1 Neuro: Level of Consciousness is awake, alert, obeys commands, Oriented to person, place, time, situation. Cardiovascular: Patient's skin is warm and dry. Respiratory: Airway is patent Respiratory effort is even, unlabored. GI: Reports Patient currently denies nausea. 13:40 Reassessment: Patient appears in no apparent distress at this time. Patient and/or nj1 family updated on plan of care and expected duration. Pain level reassessed. Patient is alert, oriented x 3, equal unlabored respirations, skin warm/dry/pink. 14:50 Reassessment: Patient appears in no apparent distress at this time. Patient and/or nj1 family updated on plan of care and expected duration. Pain level reassessed. Patient is alert, oriented x 3, equal unlabored respirations, skin warm/dry/pink. 14:59 Reassessment: Unsuccessful attempt to call report at this time. Nurse states there is a nj1 patient in that room, asks to call back later. 15:11 Reassessment: Unsuccessful attempt to call report, no answer. nj 15:13 Reassessment: Unsuccessful attempt to call report. Nurse answers the phone with "can nj1 you call in 10 minutes?". 16:07 Reassessment: Patient appears in no apparent distress at this time. Patient is alert, nj1 oriented x 3, equal unlabored respirations, skin warm/dry/pink. EMS here to transport patient. Report given to Jessika EMT. Vital Signs: 10:44 BP 153 / 87; Pulse 77; Resp 16; Temp 97.1(TE); Pulse Ox 99% on R/A; Weight 73.03 kg; hb Height 5 ft. 3 in. ; Pain 6/10; 12:51 BP 134 / 73; Pulse 71; Resp 16; Pulse Ox 94% on R/A; nj1 13:45 BP 131 / 72; Pulse 72; Resp 16; Pulse Ox 96% on R/A; Pain 4/10; nj1 14:51 BP 131 / 75; Pulse 74; Resp 16; Pulse Ox 94% on R/A; nj1 16:08 BP 135 / 69; Pulse 73; Resp 16; Pulse Ox 97% ; nj1 10:44 Body Mass Index 28.52 (73.03 kg, 160.02 cm) hb 10:44 Pain Scale: Adult hb 13:45 Pain Scale: Adult nj1 ED Course: 10:34 Patient arrived in ED. mg5 10:44 Triage completed. hb 10:44 Arm band placed on. hb 10:49 Tdod Agrawal MD is Attending Physician. rt 11:00 CT Abd/Pelvis - Without Contrast In Process Unspecified. EDMS 11:25 Initial lab(s) drawn, by me, sent to lab. Inserted saline lock: 20 gauge in right zm antecubital area, using aseptic technique. Blood collected. 11:25 CBC with Diff Sent. zm 11:25 CMP Sent. zm 11:25 Lipase Sent. zm 12:07 Serene Ashraf, RN is Primary Nurse. nj1 12:51 Patient has correct armband on for positive identification. Bed in low position. Call nj1 light in reach. Adult w/ patient. Provided Education on: call light, fall precautions. 13:19 Initiated transfer with J rn transfer from [facility] transfer [place]. jr12 15:30 No provider procedures requiring assistance completed. Patient transferred, IV remains nj1 in place. 15:42 Assisted to bathroom. aw1 Administered Medications: 12:43 Drug: Ondansetron IVP 4 mg IVP once; over 2 minutes Route: IVP; Site: right antecubital;nj1 13:40 Follow up: Response: No adverse reaction nj1 12:45 Drug: morphine IVP or IV 2 mg IVP once over 4 mins Route: IVP; Infused Over: 4 mins; nj1 Site: right antecubital; 13:40 Follow up: Response: No adverse reaction; Pain is decreased nj1 16:19 Drug: morphine IVP or IV 2 mg IVP once over 4 mins Route: IVP; Infused Over: 4 mins; nj1 Site: right antecubital; Medication: 15:37 VIS not applicable for this client. nj1 Outcome: 13:46 ER care complete, transfer ordered by . rt 15:30 Transferred by ground EMS to [facility], Transfer form completed. nj1 Note: Report given to Tian WEINBERG 15:30 Condition: stable nj1 15:30 Instructed on the need for transfer, 16:19 Patient left the ED. nj1 Signatures: Dispatcher [employer] EDMS Mariely Del Valle RN RN Lu Toro Ryan, MD MD rt Serene Ashraf RN RN nj1 Queenie Ortega aw1 Kim Haddad mg5 Shannon Angel [facility] Corrections: (The following items were deleted from the chart) 10:49 10:44 BP 153 / 87; Pulse 77bpm; Resp 16bpm; Pulse Ox 99% RA; Temp 97.1F Temporal; hb hb 14:54 13:50 BP 131 / 72; Pulse 72bpm; Resp 16bpm; Pulse Ox 96% RA; Pain 4/10, Adult; nj1 nj1
[2023-12-23 16:33] VITALS: BP 135/69; TEMP 97.1; O2SAT 97
== END 2023-12-23 16:19 | disposition short-term general hospital (02) ==
LOC: ER 10:27
DX: N20.1 Calculus of ureter (principal); E11.9 Type 2 diabetes mellitus without complications; I10 Essential (primary) hypertension; E03.9 Hypothyroidism, unspecified; Z88.5 Allergy status to narcotic agent; Z88.8 Allergy status to other drugs, medicaments and biological substances
CPT/HCPCS: 87088; 85025; 81001; 87086; 36415; 83690; 80053; 74176; 96375; 96374; 99285; J2405

== ENCOUNTER 2024-09-29 11:08 | Emergency (ER) | payer OTHER ==
--- NOTE | 2024-09-29 12:40 | RAD REPORT ---
EXAMINATION: ONE VIEW CHEST XR CLINICAL INDICATION: Female, 74 years old.,COUGH TECHNIQUE: Frontal chest projection is submitted. Examination is limited by patient positioning and t echnique. COMPARISON: No prior exam. FINDINGS: The lungs are well inflated. Right infrahilar hazy opacification. No pneumothorax or sizable effusio n. The heart is normal in size. Mediastinal contours are unremarkable. IMPRESSION: Right infrahilar hazy opacification, could reflect atelectasis or early airspace disease.
--- NOTE | 2024-09-29 12:42 | RAD REPORT ---
EXAM: CT Head Brain Wo Cont HISTORY: Dizziness;Headache COMPARISON: MRI brain 04/28/2020 TECHNIQUE: Multiple contiguous axial images were obtained for a CT of the brain without contrast. Sag ittal and coronal reformats were performed. One or more of the following dose reduction techniques were used: Automated exposure control, adjus tment of the mA and kV according to patient size, and iterative reconstruction. Unless otherwise specified, incidental findings do not require dedicated imaging follow-up. FINDINGS: No evidence of hydrocephalus, intracranial hemorrhage, or extra-axial fluid collection. Mild brain atrophy with mild periventricular and deep white matter chronic microvascular ischemic ch anges present. The calvarium is intact. Up to moderate scattered paranasal sinus mucosal thickening with left maxill cristy sinus aerated secretions. Sequelae of functional endoscopic sinus surgery. Mastoid air cells are essentially clear. IMPRESSION: No evidence of acute intracranial abnormality.
[2024-09-29 12:48] LABS: Absolute Lymphocytes (CBC) 0.6 K/uL (0.7-4.9); Absolute Monocytes 0.4 K/uL (0.1-1.3); Absolute Neutrophil 5.4 K/uL (1.8-8.0); Basophils % 0.6 % (0-1.3); Eosinophils % 0.6 % (0-4.4); Hematocrit 39.8 % (36.0-45.0); Hemoglobin 13.7 g/dL (12.0-15.0); Lymphocytes % 9.6 % (15.3-44.8); MCH 33.3 pg (27.0-35.0); MCHC 34.5 g/dL (32.0-36.0); MCV 96.6 fL (80-100); Monocytes % 6.5 % (3.3-12.3); Neutrophils % 82.7 % (41.7-73.7); Platelets 254 thou/uL (152-406); RBC Red Blood Cell Count 4.12 M/uL (3.86-4.86); Red Cell Distribution Width 14.9 % (12.1-15.2)
[2024-09-29 13:01] LABS: ALT/SGPT 20 U/L (13-56); Albumin 3.9 g/dL (3.4-5.0); Albumin/Globulin Ratio 1.1 (1.1-1.8); Alkaline Phosphatase 69 U/L (45-117); Anion Gap 6.1 mEq/L (5.0-15.0); BUN Blood Urea Nitrogen 10 mg/dL (7-18); Bicarbonate 31 mEq/L (21-32); Bilirubin Direct 0.2 mg/dL (0-0.2); Bilirubin Indirect, Calculated 0.3 mg/dL (0.2-0.8); Bilirubin Total 0.5 mg/dL (0.2-1.0); Globulin 3.7 g/dL (2.3-3.5); Glomerular Filtration Rate 68 ml/min (=/>90); Glucose Level 130 mg/dL (74-106); Magnesium 1.8 mg/dL (1.6-2.4); Potassium 3.1 mEq/L (3.5-5.1); Protein, Total 7.6 g/dL (6.4-8.2); Sodium Level 135 mEq/L (136-145); Troponin High Sensitivity 5.9 pg/mL (<58.9)
[2024-09-29 13:07] LABS: AST/SGOT < 10 U/L (15-37)
[2024-09-29 13:30] LABS: Influenza A Ag Negative; Influenza B Ag Negative
[2024-09-29 13:31] LABS: SARS-CoV-2 Antigen Rapid Res Positive (Negative)
--- NOTE | 2024-09-29 13:42 | ER ---
Nurse's Notes [facility] Name: Mary Asher Age: 74 yrs Sex: Female : 1950 Arrival Date: 09/29/2024 Time: 11:08 Bed 8 Private MD: Diagnosis: COVID-19, upper respiratory infection, viral illness Presentation: 09/29 11:41 Chief complaint: Patient states: had some congestion and headache yesterday , took some iw allergy medicine zicam and Claritin, now feels dizzy this morning and her ears are hurting. Ebola Screen: No symptoms or risks identified at this time. 11:41 Method Of Arrival: Wheelchair iw 11:42 Coronavirus screen: At this time, the client does not indicate any symptoms associated iw with coronavirus-19. Initial Sepsis Screen: Does the patient meet any 2 criteria? No. Patient's initial sepsis screen is negative. Does the patient have a suspected source of infection? No. Patient's initial sepsis screen is negative. Risk Assessment: Do you want to hurt yourself or someone else? Patient reports no desire to harm self or others. 11:42 Acuity: MATTHIAS 3 iw 11:42 Onset of symptoms was September 28, 2024. iw Historical: - Allergies: 11:33 Aspirin; iw 11:33 Demerol; iw 11:33 NSAIDS; iw 11:33 Percodan; iw - Home Meds: 11:34 [place] Thyroid 90 mg Oral tablet daily [Active]; propranolol 120 mg Oral Capsule, ER 24 iw hr daily [Active]; hydrochlorothiazide 12.5 mg Oral tablet daily [Active]; metformin 1,000 mg Oral tablet 2 times per day [Active]; trazodone 150 mg Oral tablet every 8 hours [Active]; atorvastatin 10 mg oral tablet daily [Active]; gabapentin 100 mg oral tablet 2 times per day [Active]; Mounjaro 5 mg/0.5 mL subcutaneous Pen Injector every week [Active]; lansoprazole 30 mg oral Tablet,disintegrating,delayed release as needed [Active]; Dexcom G7 Auto Painter miscellaneous Miscellaneous [Active]; - PMHx: 11:33 Diabetes - NIDDM; Hypertension; Hypothyroidism; iw - Immunization history:: Adult Immunizations up to date. - Infectious Disease History:: Denies. - Social history:: Smoking status: Patient denies any tobacco usage or history of. Screenin:43 [facility] ED Fall Risk Assessment (Adult) History of falling in the last 3 months, iw including since admission No falls in past 3 months (0 pts) Confusion or Disorientation No (0 pts) Intoxicated or Sedated No (0 pts) Impaired Gait No (0 pts) Mobility Assist Device Used No (0 pt) Altered Elimination No (0 pt) Score/Fall Risk Level 0 - 2 = Low Risk Oriented to surroundings, Maintained a safe environment. Abuse screen: Denies threats or abuse. Nutritional screening: No deficits noted. Tuberculosis screening: No symptoms or risk factors identified. Assessment: 11:42 General: Appears in no apparent distress. comfortable, Behavior is calm, cooperative. iw Pain: Complains of pain in head Pain currently is 7 out of 10 on a pain scale. Neuro: Level of Consciousness is awake, alert, obeys commands, Oriented to person, place, time, situation, Moves all extremities. Full function Reports dizziness, headache. Cardiovascular: Patient's skin is warm and dry. Respiratory: Respiratory effort is even, unlabored, Respiratory pattern is regular. Derm: Skin is intact, is healthy with good turgor. Musculoskeletal: Range of motion: intact in all extremities. Vital Signs: 11:32 BP 137 / 65; Pulse 80; Resp 16; Temp 98.8; Pulse Ox 95% on R/A; Weight 72.57 kg; Height em1 5 ft. 3 in. ; Pain 6/10; 13:14 BP 141 / 71; Pulse 79; Resp 16; Pulse Ox 98% ; bp 11:32 Body Mass Index 28.34 (72.57 kg, 160.02 cm) em1 11:32 Pain Scale: Adult em1 ED Course: 11:11 Patient arrived in ED. mr 11:25 Dayanara Kenny MD is Attending Physician. sp3 11:32 Asael Irizarry, RN is Primary Nurse. bp 11:42 Triage completed. iw 11:43 Patient has correct armband on for positive identification. Provided Education on: . iw Client placed on continuous cardiac and pulse oximetry monitoring. NIBP monitoring applied. 11:43 No provider procedures requiring assistance completed. iw 12:08 CT Head Brain wo Cont In Process Unspecified. EDMS 12:18 CXR XRAY In Process Unspecified. EDMS 12:33 COVID-19 Ag + Flu A+B Ag Sent. em1 12:33 Missed attempt(s): 22 gauge in right forearm. em1 12:34 Inserted saline lock: 22 gauge in right antecubital area, using aseptic technique. nh2 Blood collected. Flushed with 10 mL NS. 12:34 Basic Metabolic Panel Sent. nh2 12:34 CBC with Diff Sent. nh2 12:34 LFT's Sent. nh2 12:34 Magnesium Sent. nh2 12:34 Troponin HS Sent. nh2 Administered Medications: No medications were administered Medication: 11:43 VIS not applicable for this client. iw Outcome: 13:41 Discharge ordered by . sp3 13:59 Patient left the ED. iw Signatures: Dispatcher [employer] EDCT Morena Keith, Reg Reg mr Marnie Flores, RN RN iw Gianni Toro em1 Asael Irizarry, SULTANA RN Dayanara Azul MD MD sp3 Lucian Rodriguez, Russ nh2
--- NOTE | 2024-09-29 13:42 | EDPHYS ---
Physician Documentation [facility] Name: Mary Asher Age: 74 yrs Sex: Female : 1950 Arrival Date: 09/29/2024 Time: 11:08 Bed 8 Private MD: ED Physician Dayanara Kenny HPI: 09/29 11:59 This 74 yrs old Female presents to ER via Wheelchair with complaints of Dizziness \T\ sp3 headache. 11:59 74-year-old female with history of diabetes, hypertension that presents with headache, sp3 nasal congestion, mild cough and earache for the last 2 to 3 days. Dizziness and headache occurred this morning which is what concerned patient to come in. Dizziness is described as mild vertigo but more near syncope. She denies fever, neck pain or stiffness, chest pain, shortness of breath, abdominal pain, nausea, vomit, diarrhea, full syncope, known sick contacts, travel history, or any other signs or symptoms on ROS at this time.. Historical: - Allergies: 11:33 Aspirin; iw 11:33 Demerol; iw 11:33 NSAIDS; iw 11:33 Percodan; iw - Home Meds: 11:34 [place] Thyroid 90 mg Oral tablet daily [Active]; propranolol 120 mg Oral Capsule, ER 24 iw hr daily [Active]; hydrochlorothiazide 12.5 mg Oral tablet daily [Active]; metformin 1,000 mg Oral tablet 2 times per day [Active]; trazodone 150 mg Oral tablet every 8 hours [Active]; atorvastatin 10 mg oral tablet daily [Active]; gabapentin 100 mg oral tablet 2 times per day [Active]; Mounjaro 5 mg/0.5 mL subcutaneous Pen Injector every week [Active]; lansoprazole 30 mg oral Tablet,disintegrating,delayed release as needed [Active]; 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 - Infectious Disease History:: Denies. - Social history:: Smoking status: Patient denies any tobacco usage or history of. ROS: 12:00 Constitutional: Negative for fever, chills, and weight loss, Eyes: Negative for injury, sp3 pain, redness, and discharge, Neck: Negative for injury, pain, and swelling, Cardiovascular: Negative for chest pain, palpitations, and edema, Respiratory: Negative for shortness of breath, cough, wheezing, and pleuritic chest pain, Abdomen/GI: Negative for abdominal pain, nausea, vomiting, diarrhea, and constipation, Back: Negative for injury and pain, MS/Extremity: Negative for injury and deformity, Skin: Negative for injury, rash, and discoloration, Psych: Negative for depression, anxiety, suicide ideation, homicidal ideation, and hallucinations, Allergy/Immunology: Negative for hives, rash, and allergies, Endocrine: Negative for neck swelling, polydipsia, polyuria, polyphagia, and marked weight changes, Hematologic/Lymphatic: Negative for swollen nodes, abnormal bleeding, and unusual bruising, 12:00 All other systems are negative, Exam: 12:02 Constitutional: This is a well developed, well nourished patient who is awake, alert, sp3 and in no acute distress. Head/Face: Normocephalic, atraumatic. Eyes: Pupils equal round and reactive to light, extra-ocular motions intact. Lids and lashes normal. Conjunctiva and sclera are non-icteric and not injected. Cornea within normal limits. Periorbital areas with no swelling, redness, or edema. ENT: Nares patent. No nasal discharge, no septal abnormalities noted. External auditory canals are clear. Oropharynx with no redness, swelling, or masses, exudates, or evidence of obstruction, uvula midline. Mucous membranes moist. Neck: Trachea midline, no thyromegaly or masses palpated, and no cervical lymphadenopathy. Supple, full range of motion without nuchal rigidity, or vertebral point tenderness. No Meningismus. Chest/axilla: Normal chest wall appearance and motion. Nontender with no deformity. No lesions are appreciated. Cardiovascular: Regular rate and rhythm with a normal S1 and S2. No gallops, murmurs, or rubs. Normal PMI, no JVD. No pulse deficits. Respiratory: Lungs have equal breath sounds bilaterally, clear to auscultation and percussion. No rales, rhonchi or wheezes noted. No increased work of breathing, no retractions or nasal flaring. Abdomen/GI: Soft, non-tender, with normal bowel sounds. No distension or tympany. No guarding or rebound. No evidence of tenderness throughout. Back: No spinal tenderness. No costovertebral tenderness. Full range of motion. Skin: Warm, dry with normal turgor. Normal color with no rashes, no lesions, and no evidence of cellulitis. MS/ Extremity: Pulses equal, no cyanosis. Neurovascular intact. Full, normal range of motion. Neuro: Awake and alert, GCS 15, oriented to person, place, time, and situation. Cranial nerves II-XII grossly intact. Motor strength 5/5 in all extremities. Sensory grossly intact. Cerebellar exam normal. Normal gait. Psych: Awake, alert, with orientation to person, place and time. Behavior, mood, and affect are within normal limits. 12:21 ECG was reviewed by the Attending Physician. EKG demonstrates normal sinus rhythm at 80 sp3 bpm with a first-degree AV block at 200 ms, leftward axis, normal QRS, nonspecific diffuse ST/T changes without evidence of acute ischemia. Vital Signs: 11:32 BP 137 / 65; Pulse 80; Resp 16; Temp 98.8; Pulse Ox 95% on R/A; Weight 72.57 kg; Height em1 5 ft. 3 in. ; Pain 6/10; 13:14 BP 141 / 71; Pulse 79; Resp 16; Pulse Ox 98% ; bp 11:32 Body Mass Index 28.34 (72.57 kg, 160.02 cm) em1 11:32 Pain Scale: Adult em1 MDM: 11:27 Medical Screening Exam initiated sp3 12:02 Data reviewed: vital signs, nurses notes, old medical records, lab test result(s), EKG, sp3 radiologic studies. ED course: 74-year-old female with PMH above now with upper respiratory symptoms, headache and dizziness/near syncope. Differential diagnosis includes upper respiratory infection, viral illness, otitis media, sinusitis, bronchitis, among others. Will assess with CT scan of the head, general labs, EKG, viral swabs. Vital signs are normal and patient is in no acute distress.. 13:41 ED course: Patient is COVID-19 positive. We will start Paxlovid and replenish sp3 potassium.. 09/29 11:51 Order name: Basic Metabolic Panel; Complete Time: 13:40 sp3 09/29 11:51 Order name: CBC with Diff; Complete Time: 12:55 sp3 09/29 11:51 Order name: LFT's; Complete Time: 13:40 sp3 09/29 11:51 Order name: Magnesium; Complete Time: 13:40 sp3 09/29 11:51 Order name: Troponin HS; Complete Time: 13:40 sp3 09/29 11:51 Order name: COVID-19 Ag + Flu A+B Ag; Complete Time: 13:40 sp3 09/29 11:51 Order name: CT Head Brain wo Cont; Complete Time: 12:55 sp3 09/29 12:04 Order name: CXR XRAY; Complete Time: 12:55 sp3 09/29 11:51 Order name: EKG; Complete Time: 11:51 sp3 09/29 11:51 Order name: Cardiac monitoring; Complete Time: 12:20 sp3 09/29 11:51 Order name: EKG - Nurse/Tech; Complete Time: 12:20 sp3 09/29 11:51 Order name: IV Saline Lock; Complete Time: 12:33 sp3 09/29 11:51 Order name: Labs collected and sent; Complete Time: 12:33 sp3 09/29 11:51 Order name: O2 Sat Monitoring; Complete Time: 12:20 sp3 Administered Medications: No medications were administered Disposition Summary: 09/29/24 13:41 Discharge Ordered Notes: Location: Home sp3 Condition: Stable sp3 Diagnosis - COVID-19, upper respiratory infection, viral illness sp3 Followup: sp3 - With: Private Physician - When: Upon discharge from the Emergency Department - Reason: Continuance of care Discharge Instructions: - Discharge Summary Sheet sp3 - COVID-19 sp3 Forms: - Medication Reconciliation Form sp3 - Antibiotic Education sp3 - Prescription Opioid Use sp3 - Patient Portal Instructions sp3 - Leadership Thank You Letter sp3 Prescriptions: - Paxlovid 300 mg (150 mg x 2)-100 mg Oral Tablet, Dose Pack - take 1 dose pack ORAL route per package directions; 1 Blister; Refills: 0, sp3 Product Selection Permitted Signatures: Dispatcher [employer] Marnie Cody RN RN iw Patel, Setul, MD MD sp3 Corrections: (The following items were deleted from the chart) 12:02 12:00 Constitutional: Negative for fever, chills, and weight loss, Eyes: Negative for sp3 injury, pain, redness, and discharge, ENT: Negative for injury, pain, and discharge, Neck: Negative for injury, pain, and swelling, Cardiovascular: Negative for chest pain, palpitations, and edema, Respiratory: Negative for shortness of breath, cough, wheezing, and pleuritic chest pain, Abdomen/GI: Negative for abdominal pain, nausea, vomiting, diarrhea, and constipation, Back: Negative for injury and pain, MS/Extremity: Negative for injury and deformity, Skin: Negative for injury, rash, and discoloration, Neuro: Negative for headache, weakness, numbness, tingling, and seizure, Psych: Negative for depression, anxiety, suicide ideation, homicidal ideation, and hallucinations, Allergy/Immunology: Negative for hives, rash, and allergies, Endocrine: Negative for neck swelling, polydipsia, polyuria, polyphagia, and marked weight changes, Hematologic/Lymphatic: Negative for swollen nodes, abnormal bleeding, and unusual bruising, sp3 12:21 12:02 Constitutional: This is a well developed, well nourished patient who is awake, sp3 alert, and in no acute distress. Head/Face: Normocephalic, atraumatic. Eyes: Pupils equal round and reactive to light, extra-ocular motions intact. Lids and lashes normal. Conjunctiva and sclera are non-icteric and not injected. Cornea within normal limits. Periorbital areas with no swelling, redness, or edema. ENT: Nares patent. No nasal discharge, no septal abnormalities noted. External auditory canals are clear. Oropharynx with no redness, swelling, or masses, exudates, or evidence of obstruction, uvula midline. Mucous membranes moist. Neck: Trachea midline, no thyromegaly or masses palpated, and no cervical lymphadenopathy. Supple, full range of motion without nuchal rigidity, or vertebral point tenderness. No Meningismus. Chest/axilla: Normal chest wall appearance and motion. Nontender with no deformity. No lesions are appreciated. Cardiovascular: Regular rate and rhythm with a normal S1 and S2. No gallops, murmurs, or rubs. Normal PMI, no JVD. No pulse deficits. Respiratory: Lungs have equal breath sounds bilaterally, clear to auscultation and percussion. No rales, rhonchi or wheezes noted. No increased work of breathing, no retractions or nasal flaring. Abdomen/GI: Soft, non-tender, with normal bowel sounds. No distension or tympany. No guarding or rebound. No evidence of tenderness throughout. Back: No spinal tenderness. No costovertebral tenderness. Full range of motion. Skin: Warm, dry with normal turgor. Normal color with no rashes, no lesions, and no evidence of cellulitis. MS/ Extremity: Pulses equal, no cyanosis. Neurovascular intact. Full, normal range of motion. Neuro: Awake and alert, GCS 15, oriented to person, place, time, and situation. Cranial nerves II-XII grossly intact. Motor strength 5/5 in all extremities. Sensory grossly intact. Cerebellar exam normal. Normal gait. Psych: Awake, alert, with orientation to person, place and time. Behavior, mood, and affect are within normal limits. sp3
[2024-09-29 14:20] VITALS: TEMP 98.8
[2024-09-29 14:26] VITALS: BP 141/71; O2SAT 98
--- NOTE | 2024-10-01 11:24 | EKG ---
Test Date: 2024-09-29 Test Time: 12:14:16 [employer] Executive: ROMERO MEASUREMENT RESULTS: Intervals: Rate: 80 OH: 200 QRSD: 110 QT: 370 QTc: 426 [place]: P: 15 OH: 200 QRS: -20 T: 44 INTERPRETIVE STATEMENTS: Normal sinus rhythm Cannot rule out Anterior infarct, age undetermined Abnormal ECG Compared to ECG 05/01/1994 16:59:00 Myocardial infarct finding now present Electronically Signed On 10-01-24 11:19:21 CDT by Christiano Trimble
== END 2024-09-29 13:59 | disposition home or self-care (01) ==
LOC: ER 11:08
DX: U07.1 COVID-19 (principal); J06.9 Acute upper respiratory infection, unspecified; B34.9 Viral infection, unspecified; E11.9 Type 2 diabetes mellitus without complications; I10 Essential (primary) hypertension; E03.9 Hypothyroidism, unspecified
CPT/HCPCS: 36415; 70450; 71045; 80048; 80076; 83735; 84484; 85025; 87428; 93005; 99283